=== PATIENT | female | born 1975 ===

== ENCOUNTER → 2023-03-22 | Outpatient (CLI) | payer OTHER ==
[2023-03-24 01:08] LABS: CHLAMYDIA TRACHOMATIS, NAA Negative (Negative); HPV 16 Negative (Negative); HPV 18 Negative (Negative); HPV OTHER HR TYPES Negative (Negative)
== END | disposition home or self-care (01) ==
LOC: LAB SHORT 17:28 → LAB 17:28
PROVIDERS: Physician Assistant
DX: Z11.3 Encounter for screening for infections with a predominantly sexual mode of transmission (principal)
CPT/HCPCS: 87491; 87591; 87624; G0145